=== PATIENT | male | born 1950 ===

== ENCOUNTER → 2022-07-17 13:59 | Outpatient (BNVA) | payer OTHER, SELFPAY | PROVIDERS: PCP Hospitalist; Visit Provider Internal Medicine | DX: K62.5 Hemorrhage of anus and rectum (principal) | CPT/HCPCS: 99202 ==

== ENCOUNTER 2022-07-21 08:53 | Outpatient (REF) | payer OTHER, SELFPAY ==
[2022-07-21 09:30] LABS: Hematocrit 42.3 % (42.0-52.0); Hemoglobin 13.5 g/dl (14.0-18.0); Mean Corpuscular HGB Conc 31.9 g/dl (31.0-36.0); Mean Corpuscular Hemoglobin 27.6 pg (27.0-33.0); Mean Corpuscular Volume 86.3 fL (80.0-98.0); Mean Platelet Volume 10.4 fL (9.4-12.4); Platelet Count 248 X10*3/uL (160-400); Red Cell Distribution Width 14.9 % (11.0-16.0)
[2022-07-21 10:28] LABS: Ferritin 58 ng/mL (20-250)
== END 2022-07-21 08:54 | disposition home or self-care (01) ==
LOC: HO.LAB 08:53
PROVIDERS: Visit Provider Internal Medicine
DX: K62.5 Hemorrhage of anus and rectum (principal)
CPT/HCPCS: 36415; 82728; 85027

== ENCOUNTER 2022-10-01 10:00 | Day surgery (SDC) | payer OTHER, SELFPAY ==
[2022-09-29 10:11] VITALS: BMI 33.4
--- NOTE | 2022-09-30 12:12 | HO.ANESPROP2 ---
Documented by User: Sophia Serra NP 09/30/22 12:13 HPI - Anesthesia Eval Consult details Narrative: 71yo M for Colonoscopy PMFSH Active Problems Active Problems: All Active Problems (Updated 07/17/22 @ 14:36 by Beena Sullivan MD) Bright red rectal bleeding (Acute) Past Medical History Medical History HLD (hyperlipidemia) HTN (hypertension) Surgical History Surgical History Hx of colonoscopy Social History Social History Household Members: None Alcohol intake: current Alcohol intake frequency: a few times a week Patient Tobacco Use Status: Never used Tobacco Substance Use Type: Marijuana Advance Directives: No Advance Directives Information Provided: Yes Meds Allergies Allergy/AdvReac Type Severity Reaction Status Date / Time No Known Allergies Allergy Verified 07/17/22 14:09 Home Medications Medication Instructions Recorded Confirmed Last Taken Type amlodipine 10 mg tablet 10 mg PO DAILY 07/17/22 Unknown History atorvastatin 20 mg tablet 20 mg PO DAILY 07/17/22 Unknown History chlorthalidone 25 mg tablet 25 mg PO QAM 07/17/22 Unknown History labetalol 200 mg tablet 200 mg PO BID 07/17/22 Unknown History lisinopril 40 mg tablet 40 mg PO DAILY 07/17/22 Unknown History sildenafil 100 mg tablet 100 mg PO 07/17/22 Unknown History Exam Exam Date and Time: September 30, 2022 1212 Height,Weight and Vital Signs: Height 5 ft 6 in Weight 93.894 kg Assessment and Plan Assessment Anesthesia Assessment: Chart Reviewed Documented by User: Nusrat Smith MD 10/01/22 10:27 PMFSH Past Medical History Medical History HLD (hyperlipidemia) HTN (hypertension) Family History Family history of problems with anesthesia: No Surgical History Surgical History Hx of colonoscopy History of Problems with Anesthesia: No Social History Social History Household Members: None Alcohol intake: current Alcohol intake frequency: a few times a week Patient Tobacco Use Status: Never used Tobacco Substance Use Type: Marijuana Advance Directives: No Advance Directives Information Provided: Yes Meds Allergies Allergy/AdvReac Type Severity Reaction Status Date / Time No Known Allergies Allergy Verified 07/17/22 14:09 Home Medications Medication Instructions Recorded Confirmed Last Taken Type amlodipine 10 mg tablet 10 mg PO DAILY 07/17/22 Unknown History atorvastatin 20 mg tablet 20 mg PO DAILY 07/17/22 Unknown History chlorthalidone 25 mg tablet 25 mg PO QAM 07/17/22 Unknown History labetalol 200 mg tablet 200 mg PO BID 07/17/22 Unknown History lisinopril 40 mg tablet 40 mg PO DAILY 07/17/22 Unknown History sildenafil 100 mg tablet 100 mg PO 07/17/22 Unknown History Exam Airway Mallampati Class: II TM Dist: >3cm Neck ROM: Full Heart: rrr Lungs: cta Assessment and Plan Assessment Anesthesia Assessment: Anesthesia Plan Discussed Final Anesthetic Review Family History of Problems with Anesthesia: No History of Problems with Anesthesia: No NPO: Yes ASA Class: III Final Preanesthetic Review: No Changes in Pt Med Stat, Meds/Allgs Chart Reviewed, Consent Obtained/Reviewed and Anes Risks/Benef Reviewed Patient Risk: Low Procedure Risk: Low Anesthetic Plan Anesthetic Plan: MAC: Disposition: Standard PACU
--- NOTE | 2022-10-01 10:29 | P.OP_ITS ---
Operative Note Operative Note Date of Service: 10/01/22 Narrative: Procedure: Colonoscopy Indication: Rectal bleeding Endoscopist: Beena Sullivan MD Anesthesia Provider: Benny Whitaker MD Anesthesia type: MAC Instrument: Olympus [id number]-H190L Consent: Indication, risks vs benefits, and alternatives were discussed with the patient who gave written informed consent to proceed. EKG, pulse, pulse oximetry and blood pressure were monitored throughout the procedure. Please see anesthesia flowsheet. Procedure: The patient was brought to the procedure room and placed in the left lateral decubitus position. IV medications were administered by the anesthesia provider in attendance. A digital rectal exam was performed which was abnormal due to finding of hemorrhoids. A distal attachment cap was affixed to the tip of the colonoscope which was then inserted through the anus and advanced through the colon to the cecum at 75 cm,and terminal ileum. Appendiceal orifice and ileocecal valve were identified. Mucosa was carefully examined under high definition white light as the instrument was slowly withdrawn in a retrograde panoramic fashion. Retroflexion was performed in rectum. The procedure was not difficult. There were no immediate obvious complications. The quality of the prep was BBPS: 3+2+3 = adequate Withdrawal time 12 minutes. Limitations: No limitations. Findings: Mucosa: Normal to cecum and terminal ileum. The IC valve appeared narrow but was easily traversed with the PCF, no mucosal abnormalities. Protruding lesions: * Large internal hemorrhoids without stigmata of recent bleeding. Excavated lesions: * Few diverticula in sigmoid colon. Impression: 1. Normal colon and terminal ileum mucosa 2. Diverticulosis 3. External and internal hemorrhoids Recommendations: - Repeat colonoscopy for asymptomatic colorectal cancer screening in 10 years.
[2022-10-01 10:34] VITALS: BP 143/79; PULSE 59; RESP 18; TEMP 36.3; O2SAT 100
[2022-10-01] MEDS: Lactated Ringers 1,000 ML 100 ML IVCONT (10:45)
[2022-10-01 11:16] VITALS: BP 93/48; PULSE 56; RESP 16; TEMP 36.1; O2SAT 99
[2022-10-01 11:31] VITALS: BP 125/71; PULSE 51; RESP 16; TEMP 36.1; O2SAT 99
== END 2022-10-01 12:05 | disposition home or self-care (01) ==
PROVIDERS: PCP Hospitalist; Visit Provider Internal Medicine
PROC: 0DJD8ZZ Inspection of Lower Intestinal Tract, Via Natural or Artificial Opening Endoscopic (ICD-10-PCS; CPT 45378; principal; 2022-10-01 11:40)
DX: K62.5 Hemorrhage of anus and rectum (principal); K57.30 Diverticulosis of large intestine without perforation or abscess without bleeding; K64.8 Other hemorrhoids; K64.4 Residual hemorrhoidal skin tags; I10 Essential (primary) hypertension; E78.5 Hyperlipidemia, unspecified; Z79.899 Other long term (current) drug therapy; F12.90 Cannabis use, unspecified, uncomplicated
CPT/HCPCS: 45378

== ENCOUNTER → 2022-10-01 10:00 | Outpatient (BNV) | payer OTHER, SELFPAY | PROVIDERS: PCP Hospitalist; Visit Provider Internal Medicine | DX: K62.5 Hemorrhage of anus and rectum (principal); K64.8 Other hemorrhoids; K57.30 Diverticulosis of large intestine without perforation or abscess without bleeding | CPT/HCPCS: G0121 ==